=== PATIENT | female | born 1960 | race African-American/Black ===

== ENCOUNTER 2023-07-29 11:17 | Outpatient (AMB) | payer MEDICARE, MEDICAID, SELFPAY ==
--- NOTE | 2023-07-29 11:39 | A.OFFPC_ITS ---
Vital Signs 07/29/23 11:43 Height 5 ft 4 in Weight 176 lb BMI 30.2 BP 126/74 Blood Pressure Location Rt brachial Position Sitting Pulse 84 Pulse Source Pulse Oximeter Pulse Oximetry (%) 100 Oxygen Delivery Method Room Air Intake Visit Reasons: Est Care Intake Note: Pt is here today for New patient visit PE. Pt has [facility] at [facility]. Allergies atorvastatin [From Lipitor] Adverse Reaction (Verified 07/29/23 11:48) face swelling Medication List - Last Reconciled 07/29/23 by Serena Felder MD carvedilol 12.5 mg PO BID nifedipine ER mg PO BID spironolactone 100 mg PO DAILY Tobacco use date assessed: 07/29/23 Dental Screening Dental Screen Date: 07/29/23 Did you have a dental visit in the last 12 months?: No Did you have a dental problem in the last 6 months where you did not have access to dental care?: No Was dental information given to patient?: Patient declined HPI Est Care HPI Details Pt presents for [employer] visit. Patient moved from [place] 2 years ago to live with her [id number]. Past medical history includes hypertension, end- stage renal disease on dialysis for 17 years. Patient complains of worsening dyspnea on exertion for the last 2 years . She denies chest pain palpitations PND or orthopnea. Patient also complains of chronic bilateral knee pain and stiffness worse when walking but also at rest. [facility] Surgical History H/O: hysterectomy H/O thyroidectomy Family History Father No problems noted. Mother Hypertension Hx of CABG Brother No problems noted. Social History (Updated 07/29/23 @ 12:48 by Serena Felder MD) Household Members Other:: , moved [place] 2019, 7 adult children Housing: Apartment Patient Tobacco Use Status: Former Tobacco user (2 years ago) Tobacco use type: Cigarette e-Cigarette/Vaping Use: Never Used Current occupational status: disabled Cognitive needs: No Hearing needs: No Vision needs: Yes Questionnaire PHQ-9 Over the last 2 weeks, how often have you been bothered by any of the following problems? 1. Little interest or pleasure in doing things: not at all 2. Feeling down, depressed, or hopeless: not at all 3. Trouble falling or staying asleep, or sleeping too much: not at all 4. Feeling tired or having little energy: not at all 5. Poor appetite or overeating: not at all 6. Feeling bad about yourself - or that you are a failure or have let yourself or your family down: not at all 7. Trouble concentrating on things, such as reading the newspaper or watching television: not at all 8. Moving or speaking so slowly that other people could have noticed. Or the opposite - being so fidgety or restless that you have been moving around a lot more than usual: not at all 9. Thoughts that you would be better off or of hurting yourself in some way: not at all Total score: 0 Depression Screening Interpretation: Negative Depression Screening Done: Yes Source: Developed by Drs. Tayo Arcos, Allison Nichols, Robe Spicer and colleagues, with an educational amanda from [employer]. Thrive Questionnaire Date Thrive assessed: 07/29/23 I am a: Patient What is your living situation today?: I have a steady place to live Within the past 12 months, did the food you bought not last and you didn't have the money to get more?: Often true Within the past 12 months, did you worry whether your food would run out before you got money to buy more?: Never true Do you have trouble paying for medicines?: Yes Do you have trouble getting transportation to medical appointments?: No Do you have trouble paying your heating and electricity bill?: No Do you have trouble taking care of your child, family member or friend?: No Do you have trouble with day-to-day activities such as bathing, preparing meals, shopping, managing finances, etc.?: No Are you currently unemployed and looking for a job?: No Are you interested in more education?: Yes Please select the resources that you would like help with: Paying for medicine and Education Currently or been in a relationship where the following occur: no concerns reported THRIVE Score: 1 AUDIT C Alcohol Use Questionnaire (AUDIT-C) 1. How often do you have a drink containing alcohol?: Never 3. How often do you have six or more drinks on one occasion?: Never Total Score: 0 RICHARD-7 AMB Questionnaire RICHARD-7 Date RICHARD - 7 assessed: 07/29/23 Feeling nervous, anxious, or on edge: 0 = Not at all Not being able to stop or control worryin = Not at all Worrying too much about different things: 0 = Not at all Trouble relaxin = Not at all Being so restless that it is hard to sit still: 0 = Not at all Becoming easily annoyed or irritable: 0 = Not at all Feeling afraid as if something awful might happen: 0 = Not at all Total RICHARD-7 score (0-4 normal; 5-9 mild; 10-14 moderate; 15-21 severe): 0 Source: Developed by Drs. Tayo Arcos, Allison Nichols, Robe Spicer and colleagues, with an educational amanda from [employer]. Review of Systems Const All systems reviewed & are unremarkable except as noted in HPI and below Reports no additional complaints Eyes Reports no additional complaints ENT Reports no additional complaints Card Reports no additional complaints Resp Reports no additional complaints GI Reports no additional complaints Reports no additional complaints Physical exam (Primary Care) Vital Signs: Last Vital Signs Pulse 84 07/29/23 11:43 BP 126/74 07/29/23 11:43 Pulse Ox 100 07/29/23 11:43 Oxygen Delivery Method Room Air 07/29/23 11:43 BMI result Body Mass Index 30.2 Tobacco/Smoking Status: Tobacco use Status Tobacco use date assessed 07/29/23 07/29/23 11:40 Patient Tobacco Use Status Former Tobacco user (2 years 07/29/23 11:52 ago) Tobacco use type Cigarette 07/29/23 11:52 e-Cigarette/Vaping Use Never Used 07/29/23 11:52 PHQ-9: PHQ-9 Score PHQ-9: Total score 0 07/29/23 11:54 Depression Screening Interpretation: Negative Thrive Assessment: Date of Thrive Assessment Date Thrive assessed 07/29/23 07/29/23 11:54 Currently or been in a relationship where the following occur: no concerns reported Const General: no acute distress HENMT Head: Yes normal to inspection Mouth: Normal oral and palatal mucosa present Throat: Yes posterior oropharynx normal Neck Neck: Yes no lymphadenopathy and Yes supple Resp Effort & Inspection: normal respiratory effort Auscultation: clear to auscultation bilaterally Cardio Rhythm: regular rhythm Heart sounds: S1 normal heart sound present, S2 normal heart sound present and Murmur heart sound present systolic III/ GI Inspection: Yes normal to inspection Palpation (GI): Soft to palpation Percussion: Yes normal to percussion Auscultation: normal bowel sounds Extrem General: Yes no clubbing, cyanosis or edema Assessment and Plan Assessment & Plan (1) ESRD (end stage renal disease): Comment: X 17 YRS , Hx of uncontrolled HTN Code(s): N18.6 - End stage renal disease Plan: Follow-up with nephrology (2) MARTINEZ (dyspnea on exertion): Code(s): R06.09 - Other forms of dyspnea Plan: Check chest x-ray (3) HTN (hypertension): Code(s): I10 - Essential (primary) hypertension Plan: Controlled on current medications (4) Hoarseness: Comment: X 20 YRS Code(s): R49.0 - Dysphonia Plan: Will obtain medical records (5) Hx of mammogram: Comment: 2020 Code(s): Z92.89 - Personal history of other medical treatment Plan: Patient will schedule mammogram at [facility] (6) Ex-smoker: Comment: 1/2 PPD since 17 yo , quit 2021 Code(s): Z87.891 - Personal history of nicotine dependence (7) Heart murmur: Code(s): R01.1 - Cardiac murmur, unspecified Plan: Obtain echocardiogram (8) SVC syndrome: Code(s): I87.1 - Compression of vein (9) CAD (coronary artery disease): Comment: ? [place], ASA ? no statin Code(s): I25.10 - Atherosclerotic heart disease of [place] coronary artery without angina pectoris Plan: Obtain Medical records (10) H/O thyroidectomy: Code(s): E89.0 - Postprocedural hypothyroidism Plan: Check TSH Orders: Orders CA echo transthorac w con Today E89.0 - Postprocedural hypothyroidism, I10 - Essential (primary) hypertension, R01.1 - Cardiac murmur, unspecified, R06.09 - Other forms of dyspnea MM screening mammo BI Today E89.0 - Postprocedural hypothyroidism, Z12.31 - Encounter for screening mammogram for malignant neoplasm of breast Comprehensive [place]. Panel Fast Today I10 - Essential (primary) hypertension, N18.6 - End stage renal disease, R06.09 - Other forms of dyspnea, Z87.891 - Personal history of nicotine dependence XR chest 1V Today TSH reflex Free T4 Today E89.0 - Postprocedural hypothyroidism Complete Blood Count no Diff Today I10 - Essential (primary) hypertension, N18.6 - End stage renal disease, R06.09 - Other forms of dyspnea, Z87.891 - Personal history of nicotine dependence Lipid Panel Today I10 - Essential (primary) hypertension, N18.6 - End stage renal disease, R06.09 - Other forms of dyspnea, Z87.891 - Personal history of nicotine dependence XR knee standing BI Today Referrals Cologuard Test Z12.11 - Encounter for screening for malignant neoplasm of colon, Z12.12 - Encounter for screening for malignant neoplasm of rectum Coding Level of Care Code New Pt Level 4 (41766) Diagnoses ESRD (end stage renal disease) N18.6 MARTINEZ (dyspnea on exertion) R06.09 HTN (hypertension) I10 Hoarseness R49.0 Hx of mammogram Z92.89 Ex-smoker Z87.891 Heart murmur R01.1 SVC syndrome I87.1 CAD (coronary artery disease) I25.10 H/O thyroidectomy E89.0
[2023-07-29 11:43] VITALS: BP 126/74; PULSE 84; O2SAT 100; BMI 30.2
== END 2023-07-29 12:52 | disposition home or self-care (01) ==
LOC: HO.HMGC 11:17
PROVIDERS: Visit Provider Internal Medicine
DX: N18.6 End stage renal disease (principal); R06.09 Other forms of dyspnea; I12.0 Hypertensive chronic kidney disease with stage 5 chronic kidney disease or end stage renal disease; R49.0 Dysphonia; Z92.89 Personal history of other medical treatment; Z87.891 Personal history of nicotine dependence; R01.1 Cardiac murmur, unspecified; I87.1 Compression of vein; I25.10 Atherosclerotic heart disease of native coronary artery without angina pectoris; E89.0 Postprocedural hypothyroidism
CPT/HCPCS: 99204

== ENCOUNTER 2023-09-03 15:09 | Outpatient (AMB) | payer MEDICARE, MEDICAID, SELFPAY ==
--- NOTE | 2023-09-03 15:20 | MHC.OFFWIV ---
Intake Vital Signs 09/03/23 15:23 Height 5 ft 4 in BP 140/72 H Blood Pressure Location Lt brachial Position Sitting Pulse 76 Pulse Source Pulse Oximeter Temp 98.1 F Temp Source Oral Pulse Oximetry (%) 98 Oxygen Delivery Method Room Air Intake Visit Reasons: EP sore throat lost voice Intake Note: pt is here for c/o sore throat and loss of voice Patient Tobacco Use Status: Former Tobacco user (2 years ago) Allergies atorvastatin [From Lipitor] Adverse Reaction (Verified 09/03/23 15:24) face swelling Do you need a note to return to daycare/school/sports/work: No HPI HPI Comments History of Present Illness Details 63 y/o female patient who presents to walk in clinic with c/o wheezing, SOB, cough and sore throat for few days. Pt reports inability to fall asleep due to difficult with breathing. PFSH Surgical History H/O: hysterectomy H/O thyroidectomy Family History Father No problems noted. Mother Hypertension Hx of CABG Brother No problems noted. Social History (Updated 07/29/23 @ 12:48 by Serena Felder MD) Household Members Other:: , moved [place] 2019, 7 adult children Housing: Apartment Patient Tobacco Use Status: Former Tobacco user (2 years ago) Tobacco use type: Cigarette e-Cigarette/Vaping Use: Never Used Current occupational status: disabled Cognitive needs: No Hearing needs: No Vision needs: Yes Review of Systems Const All systems reviewed & are unremarkable except as noted in HPI and below Physical Exam Vital Signs: Last Vital Signs Temp 98.1 F 09/03/23 15:23 Pulse 76 09/03/23 15:23 BP 140/72 H 09/03/23 15:23 Pulse Ox 98 09/03/23 15:23 Oxygen Delivery Method Room Air 09/03/23 15:23 Const General: comfortable and no acute distress Orientation/consciousness: patient oriented x3 HEENT Head: Yes normocephalic Ears: external ears normal and TM's normal bilaterally General nose exam: Abnormal mucous membranes and turbinates present boggy and erythematous Face and sinus: Yes sinuses nontender Mouth: moist mucous membranes Throat: Yes posterior oropharynx normal Resp Effort & Inspection: normal respiratory effort, able to speak in complete sentences, audible wheezes and Actively coughing Auscultation: clear to auscultation bilaterally, no crackles, no rales, rhonchi throughout and wheezes scattered wheezes Cardio Rate: regular rate Rhythm: regular rhythm Neuro General: patient oriented x3, gait normal and moves all extremities Psych Speech and movement: Normal speech and movement present Office Procedures Nebulizer Treatment Nebulizer Treatment [id number] RX initial, or Nebulizer Subsequent Treatment Office Meds ipratropium 0.5 mg-albuterol 3 mg (2.5 mg base)/3 mL nebulization soln Performing Provider: Adamaris Pratt NP Performing Location: [facility] Administered by: Adamaris Pratt NP on 09/03/23 16:57 Dose Route Admin Location Dispensed Lot Number Expiration Date NDC Platen Builder Up 3 mL inhalation 3 mL M38 03/14/24 3951-3439-38 [facility] D[facility] Results AMB Rapid Strep AMB Rapid Strep Negative Last Edit by Don Munoz CMA on 09/03/23 16:05 Assessment & Plan Assessment & Plan (1) Wheezing on auscultation: Code(s): R06.2 - Wheezing Plan: - Rapid Strep Negative - Administered Neb Tx in Office. - Rest and hydrate well with warm fluids. Orders: Orders AMB Rapid Strep Screen Today Z13.9 - Encounter for screening, unspecified AMB Nebulizer Treatment Today R06.2 - Wheezing SARS-CoV2/FLU/RSV Today R06.2 - Wheezing Medications: New prednisone 50 mg PO DAILY 5 tabs 0RF 5 days R06.2 - Wheezing azithromycin 500 mg PO DAILY 3 tabs 0RF 3 days J06.9 - Acute upper respiratory infection, unspecified, R06.2 - Wheezing albuterol sulfate 90 mcg/actuation 2 puffs inhalation Q4-6H PRN 8.5 grams 0RF shortness of breath or wheezing R06.2 - Wheezing Coding Level of Care Code Est Pt Level 4 (81897) Diagnoses Wheezing on auscultation R06.2 CPT Codes Nebulizer Treatment - Nebulizer Treatment, initial or subsequent: [id number] RX initial, or Nebulizer Subsequent Treatment ([id number]) Time Spent (min) 20
[2023-09-03 15:23] VITALS: BP 140/72; PULSE 76; TEMP 36.7; O2SAT 98
== END 2023-09-03 16:35 | disposition home or self-care (01) ==
PROVIDERS: Visit Provider Nurse Practitioner Family
DX: R06.2 Wheezing (principal); J02.9 Acute pharyngitis, unspecified
CPT/HCPCS: 87880; 94640; 99214; J7620

== ENCOUNTER 2023-09-03 15:59 | Outpatient (REF) | payer MEDICARE, MEDICAID, SELFPAY ==
[2023-09-04 11:59] LABS: Influenza A PCR NEGATIVE (Negative); Influenza B PCR NEGATIVE (Negative); Resp Syncy Virus RNA Qual PCR NEGATIVE (Negative); SARS COV2 PCR INHOUSE NEGATIVE (Negative)
== END 2023-09-03 16:00 | disposition home or self-care (01) ==
LOC: HO.LAB 15:59
PROVIDERS: Visit Provider Nurse Practitioner Family
DX: R06.2 Wheezing (principal)
CPT/HCPCS: 0241U

== ENCOUNTER → 2023-09-30 09:11 | Outpatient (REF) | payer MEDICARE, MEDICAID, SELFPAY ==
--- NOTE | ~2023-09-30 | MM_ITS ---
EXAMINATION: MM SCREENING DIGITAL BREAST TOMOSYNTHESIS, BILATERAL CLINICAL INFORMATION: Screening. Asymptomatic. 63-year-old female, history of dialysis x17 years, chronic left arm swelling which has traveled into the breast, recent history of PEs at [facility] , with 3 months in rehabilitation although no records could be found relating to this. Patient states priors at [facility] , although no records could be found relating to this either, nor at any other local institution, despite exhaustive search. Per provider note, patient has only been in the area for approximately 2 years. Patient history is vague, and no priors could be obtained for comparison. COMPARISON: Mammography: No priors could be found. This will serve as the patient's new baseline. TECHNIQUE: Digital breast tomosynthesis is performed in both the craniocaudal and mediolateral oblique views along with computer-aided detection (CAD). Synthesized 2D images are generated from the tomosynthesis. Added right MLO view was submitted for motion. There is motion on the left MLO view due to patient's inherent inability to tolerate compression. FINDINGS: The breasts are heterogeneously dense, which may obscure small masses (ACR BI-RADS breast composition Category c). There is generalized trabecular thickening, skin thickening, and numerous dilated varicosities throughout the left breast. Extensive arterial calcification noted bilaterally. There are prominent lymph nodes in the left axilla, also likely related to edema. In the right breast, there are also extensive varicosities present, without associated skin thickening. There is mild prominence of the trabecular markings suggesting mild interstitial edema. No suspicious masses, suspicious calcifications, or areas of architectural distortion in either breast. MM/MM tomosynthesis screening BI IMPRESSION: 1. No mammographic evidence of malignancy in either breast. 2. Extensive bilateral left greater than right breast varicosities, generalized trabecular thickening left greater than right, and skin thickening most notable on the left, most likely related to long-standing dialysis and fluid overload of the left greater than right breasts. If there is any suspicion for inflammatory breast CA on the left, skin biopsy should be undertaken, although the findings are most supportive of left breast edema. 3. Extensive arterial calcifications in both breasts. ASSESSMENT: BI-RADS BI-RADS 2 - Benign Findings RECOMMENDATION: 1. Clinical management of the patient's left breast edema. If there is any suspicion of an inflammatory CA, skin punch biopsy should be undertaken. 2. Otherwise, routine annual screening mammography. This examination should not preclude the clinical evaluation of a suspicious palpable abnormality. This patient's information was entered into a reminder system with a target due date for their next mammogram.
== END ==
LOC: HO.CARD 09:11
PROVIDERS: PCP Internal Medicine; Visit Provider Internal Medicine
DX: Z12.31 Encounter for screening mammogram for malignant neoplasm of breast (principal)
CPT/HCPCS: 77063; 77067

== ENCOUNTER → 2023-09-30 12:00 | Outpatient (BNV) | payer MEDICARE, MEDICAID, SELFPAY | PROVIDERS: PCP Internal Medicine; Visit Provider Radiology Diagnostic Radiology | DX: Z12.31 Encounter for screening mammogram for malignant neoplasm of breast (principal) | CPT/HCPCS: 77063; 77067 ==

== ENCOUNTER 2024-01-20 09:42 | Outpatient (AMB) | payer MEDICARE, MEDICAID, SELFPAY ==
[2024-01-20 09:43] VITALS: BP 128/66; PULSE 82; O2SAT 98; BMI 30.9
--- NOTE | 2024-01-20 09:43 | A.OFFPC_ITS ---
Vital Signs 01/20/24 09:43 Height 5 ft 4 in Weight 180 lb BMI 30.9 BP 128/66 Blood Pressure Location Rt brachial Position Sitting Pulse 82 Pulse Source Pulse Oximeter Pulse Oximetry (%) 98 Oxygen Delivery Method Room Air Intake Visit Reasons: Gout Intake Note: Pt is here today for a sick visit. Pt c/o L foot swelling and pain. Allergies atorvastatin [From Lipitor] Adverse Reaction (Verified 01/20/24 09:49) face swelling Medication List - Last Reconciled 01/20/24 by Serena Felder MD albuterol sulfate 90 mcg/actuation 2 puffs inhalation Q4-6H PRN carvedilol 12.5 mg PO BID nifedipine ER mg PO BID spironolactone 100 mg PO DAILY spironolactone 100 mg PO DAILY Tobacco use date assessed: 01/20/24 Dental Screening Dental Screen Date: 01/20/24 Did you have a dental visit in the last 12 months?: No Did you have a dental problem in the last 6 months where you did not have access to dental care?: No Was dental information given to patient?: Patient declined HPI Gout HPI Details Patient presents for the follow-up of hospitalization at [facility] in September for acute respiratory failure, PE hemoptysis ICU stay and intubation, status post vocal cords stripping by ENT, intraperitoneal bleed while on heparin, hypertensive crisis. Patient has been slowly improving since the discharge. She lives independently. Patient noticed left lower extremity swelling worse at the end of the day in the last 2 weeks. She denies any trauma pain in cough erythema warmth or joint pain. She has been on dialysis for end-stage kidney disease 3 times a week. Hypertension has been running occasionally elevated but patient denies headache chest pain or shortness for breath. [facility] Surgical History H/O: hysterectomy H/O thyroidectomy Family History Father No problems noted. Mother Hypertension Hx of CABG Brother No problems noted. Social History Household Members Other:: , moved [place] 2020, 7 adult children Housing: Apartment Patient Tobacco Use Status: Former Tobacco user (2 years ago) Tobacco use type: Cigarette e-Cigarette/Vaping Use: Never Used service: No Current occupational status: disabled Cognitive needs: No Hearing needs: No Vision needs: Yes Questionnaire PHQ-9 Over the last 2 weeks, how often have you been bothered by any of the following problems? 1. Little interest or pleasure in doing things: not at all 2. Feeling down, depressed, or hopeless: not at all 3. Trouble falling or staying asleep, or sleeping too much: not at all 4. Feeling tired or having little energy: not at all 5. Poor appetite or overeating: not at all 6. Feeling bad about yourself - or that you are a failure or have let yourself or your family down: not at all 7. Trouble concentrating on things, such as reading the newspaper or watching television: not at all 8. Moving or speaking so slowly that other people could have noticed. Or the opposite - being so fidgety or restless that you have been moving around a lot more than usual: not at all 9. Thoughts that you would be better off or of hurting yourself in some way: not at all Total score: 0 Depression Screening Interpretation: Negative Depression Screening Done: Yes Source: Developed by Drs. Tayo Arcos, Allison Nichols, Robe Spicer and colleagues, with an educational amanda from [employer]. Thrive Questionnaire Date Thrive assessed: 01/20/24 I am a: Patient What is your living situation today?: I have a steady place to live Within the past 12 months, did the food you bought not last and you didn't have the money to get more?: Never true Within the past 12 months, did you worry whether your food would run out before you got money to buy more?: Never true Do you have trouble paying for medicines?: Yes Do you have trouble getting transportation to medical appointments?: No Do you have trouble paying your heating and electricity bill?: No Do you have trouble taking care of your child, family member or friend?: No Do you have trouble with day-to-day activities such as bathing, preparing meals, shopping, managing finances, etc.?: No Are you currently unemployed and looking for a job?: Yes Are you interested in more education?: No Please select the resources that you would like help with: Housing/Group Home THRIVE Score: 0 AUDIT C Alcohol Use Questionnaire (AUDIT-C) 1. How often do you have a drink containing alcohol?: Never 3. How often do you have six or more drinks on one occasion?: Never Total Score: 0 RICHARD-7 AMB Questionnaire RICHARD-7 Date RICHARD - 7 assessed: 07/29/23 Source: Developed by Drs. Tayo Arcos, Allison Nichols, Robe Spicer and colleagues, with an educational amanda from [employer]. Review of Systems Const All systems reviewed & are unremarkable except as noted in HPI and below Eyes Reports no additional complaints ENT Reports no additional complaints Card Reports no additional complaints Resp Reports no additional complaints GI Reports no additional complaints Reports no additional complaints Physical exam (Primary Care) Vital Signs: Last Vital Signs Pulse 82 01/20/24 09:43 BP 128/66 01/20/24 09:43 Pulse Ox 98 01/20/24 09:43 Oxygen Delivery Method Room Air 01/20/24 09:43 BMI result Body Mass Index 30.9 Tobacco/Smoking Status: Tobacco use Status Tobacco use date assessed 01/20/24 01/20/24 09:54 Patient Tobacco Use Status Former Tobacco user (2 years 01/20/24 09:43 ago) Tobacco use type Cigarette 01/20/24 09:43 e-Cigarette/Vaping Use Never Used 01/20/24 09:43 PHQ-9: PHQ-9 Score PHQ-9: Total score 0 01/20/24 09:54 Depression Screening Interpretation: Negative Thrive Assessment: Date of Thrive Assessment Date Thrive assessed 01/20/24 01/20/24 09:43 Const General: no acute distress HENMT Face and sinus: Yes normal facial exam Throat: Yes posterior oropharynx normal Resp Effort & Inspection: normal respiratory effort Auscultation: clear to auscultation bilaterally Cardio Rhythm: regular rhythm Heart sounds: S1 normal heart sound present, S2 normal heart sound present and Murmur heart sound present systolic III/ and at the left sternal border GI Inspection: Yes normal to inspection Palpation (GI): Soft to palpation Extrem Other: Trace pitting edema in the left lower extremity, left ankle with full range of motion no erythema or warmth Assessment and Plan Assessment & Plan (1) Left leg swelling: Code(s): M79.89 - Other specified soft tissue disorders Plan: Obtain left lower extremity Doppler to rule out DVT (2) Heart murmur: Code(s): R01.1 - Cardiac murmur, unspecified Plan: Obtain echo (3) HTN (hypertension): Code(s): I10 - Essential (primary) hypertension Plan: Increase carvedilol to 12.5 twice a day continue nifedipine and spironolactone follow-up in 1 month (4) ESRD (end stage renal disease): Comment: X 17 YRS , Hx of uncontrolled HTN Code(s): N18.6 - End stage renal disease Plan: Follow-up with nephrology (5) Pulmonary embolism: Comment: 09/2023 hospitalized at [facility], intraperitoneal bleed while on heparin. Anticoagulation was discontinued Code(s): I26.99 - Other pulmonary embolism without acute cor pulmonale Plan: Continue 81 mg of ASA Orders: Orders US venous duplex LE LT Today M79.89 - Other specified soft tissue disorders CA echo transthoracic complete Today R01.1 - Cardiac murmur, unspecified Referrals Cologuard Test Z12.11 - Encounter for screening for malignant neoplasm of colon, Z12.12 - Encounter for screening for malignant neoplasm of rectum Medications: New carvedilol must administer with a meal/food 12.5 mg PO BID 180 tabs 0RF Coding Level of Care Code Est Pt Level 4 (88403) Complex EM visit Add On G2211 Diagnoses Left leg swelling M79.89 Heart murmur R01.1 HTN (hypertension) I10 ESRD (end stage renal disease) N18.6 Pulmonary embolism I26.99
== END 2024-01-20 10:33 | disposition home or self-care (01) ==
PROVIDERS: PCP Internal Medicine; Visit Provider Internal Medicine
DX: I12.0 Hypertensive chronic kidney disease with stage 5 chronic kidney disease or end stage renal disease (principal); N18.6 End stage renal disease; I26.99 Other pulmonary embolism without acute cor pulmonale; M79.89 Other specified soft tissue disorders; R01.1 Cardiac murmur, unspecified
CPT/HCPCS: 99214; G2211

== ENCOUNTER 2024-01-20 10:51 | Outpatient (REF) | payer MEDICARE, MEDICAID, SELFPAY ==
--- NOTE | ~2024-01-20 | US_ITS ---
EXAMINATION: US VENOUS ULTRASOUND WITH DOPPLER LOWER EXTREMITY, LEFT CLINICAL INFORMATION: Left leg edema COMPARISON: None available. TECHNIQUE: Ultrasound of the deep veins is performed from the hip to the calf with compression sonography and color and pulse Doppler assessment. Spectral analysis with color-flow imaging is performed. FINDINGS: There is normal venous compression and respiratory variation and augmented flow. The visualized common femoral vein, superficial femoral vein, profunda femoral vein, popliteal vein, and the trifurcation region shows no evidence of deep venous thrombosis. There is no significant popliteal fossa cyst. If the patient's symptoms persist, followup ultrasound in 5 days 7 days might be of value to exclude proximal propagation from a non-visualized calf vein. US/US venous duplex LE LT IMPRESSION: No DVT demonstrated in the left lower extremity.
== END 2024-01-20 10:52 | disposition home or self-care (01) ==
LOC: HO.HMGCX 10:51
PROVIDERS: PCP Internal Medicine; Visit Provider Internal Medicine
DX: M79.604 Pain in right leg (principal); M79.89 Other specified soft tissue disorders
CPT/HCPCS: 93971

== ENCOUNTER 2024-11-13 14:25 | Outpatient (AMB) | payer MEDICARE, MEDICAID, SELFPAY ==
--- NOTE | 2024-11-13 14:46 | AM.OFFWIN_ITS ---
Intake Vital Signs 3 11/13/24 14:48 Height 5 ft 4 in Weight 181 lb BMI 31.1 BP 122/80 Blood Pressure Location Lt brachial Position Sitting Pulse 77 Pulse Source Pulse Oximeter Pulse Oximetry (%) 99 Oxygen Delivery Method Room Air Intake Visit Reasons: EP rash all over face Intake Note: Patient here for rash all over face that has been present for about 1 month. Pt denies any lotion, detergent, face wash, meds. Patient Tobacco Use Status: Former Tobacco user (2 years ago) Allergies atorvastatin [From Lipitor] Adverse Reaction (Verified 11/13/24 14:47) face swelling Do you need a note to return to daycare/school/sports/work: No HPI HPI Comments 2 History of Present Illness0 Details 64 y/o Female patient who presents to [facility] walk in clinic with c/o Rash all over face that has been present for about 1 month. Pt denies any changes to cosmetic, detergent, or Diet. She does receive Dialysis 3 times a week due to ESRD. She also does wear a Facial Mask everyday when outside - rash more concentrated around the mouth, cheeks and nose. Reports that the rash is very itchy, keeps her up at night. [facility] Medical History (Updated 11/13/24 @ 15:16 by Adamaris Pratt NP) Rash and nonspecific skin eruption Surgical History H/O: hysterectomy H/O thyroidectomy Family History Father No problems noted. Mother Hypertension Hx of CABG Brother No problems noted. Social History Household Members Other:: , moved [place] 2019, 7 adult children Housing: Apartment Patient Tobacco Use Status: Former Tobacco user (2 years ago) Tobacco use type: Cigarette e-Cigarette/Vaping Use: Never Used service: No Current occupational status: disabled Cognitive needs: No Hearing needs: No Vision needs: Yes Review of Systems Const All systems reviewed & are unremarkable except as noted in HPI and below Physical Exam Vital Signs: Last Vital Signs Pulse 77 11/13/24 14:48 BP 122/80 11/13/24 14:48 Pulse Ox 99 11/13/24 14:48 Oxygen Delivery Method Room Air 11/13/24 14:48 BMI result Body Mass Index 31.1 Const General: no acute distress Nutritional Appearance: obese Orientation/consciousness: patient oriented x3 Skin General skin exam: dry skin Rashes: rashes noted (Face, cheeks, mouth and nose bridge. ) Full body images: 2 1. Macular papular rash on face Neuro General: patient oriented x3, gait normal and moves all extremities Psych Speech and movement: Normal speech and movement present Assessment & Plan Assessment & Plan (1) Rash and nonspecific skin eruption: Code(s): R21 - Rash and other nonspecific skin eruption Plan: Ordered Steroid Cream BID Ordered Hydroxyzine. Medications: New 2 hydroxyzine HCl 25 mg PO TID PRN 30 tabs 0RF itching R21 - Rash and other nonspecific skin eruption triamcinolone acetonide 0.1% APPLY A THIN LAYER TO THE AFFECTED SKIN TWICE A DAY FOR 14 DAYS. 1 appl topical BID 2 weeks 30 grams 1RF R21 - Rash and other nonspecific skin eruption Coding Level of Care Code Est Pt Level 4 (27034) Diagnoses Rash and nonspecific skin eruption R21 Time Spent (min) 20
[2024-11-13 14:48] VITALS: BP 122/80; PULSE 77; O2SAT 99; BMI 31.1
--- OUTSIDE RECORDS SUMMARY | 2024-11-13 15:40 | XMS_ITS | Clinical Summary ---
Author Organization [facility] Address [address] [place] [address] Phone Care Team Providers Care Paginator Name Role Phone Moriah Goldman MD Primary Care Provider [phone] Allergies Active Allergy Reactions Criticality Noted Date Comments Dada Inhibitors Swelling High 01/03/2020 Swelling of tongue and lips Atorvastatin Swelling High 01/03/2020 Swelling of lips and tongue Nifedipine Other (see comments) 01/03/2020 Pt. Unsure of reaction Phenobarbital Other (see comments) 01/03/2020 Pt. Unsure of reaction Medications sevelamer carbonate (RENVELA) 800 MG tablet Take 1,600 mg by mouth in the morning and 1,600 mg at noon and 1,600 mg in the evening. Take with meals. Active loperamide (IMODIUM) 2 MG capsule TAKE 1 CAPSULE BY MOUTH EVERY 6 HOURS NEEDED FOR DIARRHEA 120 capsule 1 12/23/2020 Active aspirin (ST DEMOND) 81 MG EC tablet Take 81 mg by mouth 1 (one) time each day Active ergocalciferol 1.25 MG (27004 UT) capsule Take 50,000 Units by mouth 1 (one) time per week Active spironolactone (ALDACTONE) 100 MG tablet 12/16/2021 Active Acetaminophen (Tylenol) 325 MG capsule Take 325 mg by mouth 05/03/2018 Active NIFEdipine CC (ADALAT CC) 90 MG 24 hr tablet Take 1 tablet (90 mg total) by mouth in the morning and 1 tablet (90 mg total) in the evening. 60 tablet 01/07/2023 Active carvedilol (COREG) 12.5 MG tablet Take 1 tablet (12.5 mg total) by mouth in the morning and 1 tablet (12.5 mg total) in the evening. 180 tablet 08/31/2023 Active Melatonin 3 MG capsule Take by mouth Active Active Problems Problem Noted Date Diagnosed Date Lymphadenopathy 11/26/2022 Hypertension 11/26/2022 History of myocardial infarction 11/26/2022 End stage renal failure on dialysis 11/26/2022 Overview (11/26/2022): M-W-F 11-4PM [facility] Dependence on hemodialysis due to end stage catalino l disease 11/26/2022 H/O: breast problem 11/26/2022 Anemia in chronic kidney disease 01/03/2020 Blood coagulation disorder 01/03/2020 Cerebral infarction 01/03/2020 Gastro-esophageal reflux disease without esophag itis 01/03/2020 Hyperlipidemia 01/03/2020 Hyperparathyroidism due to renal insufficiency 0 01/03/2020 Hypoparathyroidism 01/03/2020 Pure hypercholesterolemia 01/03/2020 Stenosis of precerebral artery 01/03/2020 Urinary tract infectious disease 01/03/2020 History of cerebrovascular accident 12/19/2004 Encounters Date Type Department Care Team Description 11/08/2024 Orders Only [facility] [place] [facility] [address] [phone] Kam Ryder MD 11/01/2024 Orders Only [facility] [address] [phone] Kam Ryder MD 11/01/2024 Treatment [facility] [place] [facility] [address] [phone] Harrison Reece MD End stage renal disease; Dependence on renal dialysis 10/25/2024 Orders Only [facility] [place] [facility] [address] [phone] Kam Ryder MD 10/25/2024 Treatment [facility] [place] [facility] [address] [phone] Harrison Reece MD End stage renal disease; Dependence on renal dialysis 10/18/2024 Orders Only [facility] [address] [phone] Kam Ryder MD 10/18/2024 Treatment [facility] [address] [phone] Harrison Reece MD End stage renal disease; Dependence on renal dialysis 10/11/2024 Orders Only [facility] [address] [phone] Kam Ryder MD 10/10/2024 1:45 PM EDT Office Visit [facility] [address] [place] [address] Tayo Osei MD End stage renal disease (HCC) (Primary Dx) 10/09/2024 Treatment [facility] [address] [phone] Harrison Reece MD End stage renal disease; Dependence on renal dialysis 10/04/2024 Orders Only [facility] [address] [phone] Kam Ryder MD 10/04/2024 Treatment [facility] [address] [phone] Harrison Reece MD End stage renal disease; Dependence on renal dialysis 09/27/2024 Orders Only [facility] [address] [phone] Kam Ryder MD 09/27/2024 Treatment [facility] [address] [phone] Harrison Reece MD End stage renal disease; Dependence on renal dialysis 09/20/2024 Orders Only [facility] [address] [phone] Kam Ryder MD 09/18/2024 Treatment [facility] [address] [phone] Harrison Reece MD End stage renal disease; Dependence on renal dialysis 09/13/2024 Orders Only [facility] [address] [phone] Kam Ryder MD 09/11/2024 Orders Only [facility] [address] [phone] Harrison Reece MD 09/06/2024 Orders Only [facility] [address] [phone] Kam Ryder MD 09/04/2024 Treatment [facility] [address] [phone] Harrison Reece MD End stage renal disease; Dependence on renal dialysis 09/01/2024 Orders Only [facility] [address] [phone] Harrison Reece MD 08/30/2024 Orders Only [facility] [address] [phone] Kam Ryder MD 08/30/2024 Treatment [facility] [address] [phone] Harrison Reece MD End stage renal disease; Dependence on renal dialysis 08/25/2024 Treatment [facility] [address] [phone] Harrison Reece MD End stage renal disease; Dependence on renal dialysis 08/23/2024 Orders [facility] [address] [phone] Kam Ryder MD 08/23/2024 Treatment [facility] [address] [phone] Harrison Reece MD End stage renal disease; Dependence on renal dialysis 08/16/2024 Orders [facility] [address] [phone] Kam Ryder MD from Last 3 Months Family History Medical History Relation Comments Heart disease Mother Hypertension Mother Stroke Mother Relation Status Comments Father Unknown Mother Unknown Social History Tobacco Use Types Packs/Day Years Used Date Smoking Tobacco: Former Cigarettes Q uit: 12/15/2021 Tobacco Cessation:Counseling Given: Not Answered Alcohol Use Standard Drinks/Week Comments No 0 (1 standard drink = 0.6 oz pur e alcohol) Comments Unknown Sex and Gender Information Value Date Recorded Sex Assigned at Not on file Legal Sex Female 5:11 PM EST Gender Identity Not on file Sexual Orientation Not on file Last Filed Vital Signs Vital Sign Reading Time Taken Comments Blood Pressure 156/90 11/26/2022 12:27 PM EDT Pulse 84 11/26/2022 12:27 PM EDT Temperature 36.7 ??C (98.1 ??F) 11/26/2022 12:27 PM E DT Respiratory Rate 14 11/26/2022 12:27 PM EDT Oxygen Saturation 97% 11/26/2022 12:27 PM EDT Inhaled Oxygen Concentration - - Weight 77.1 kg (170 lb) 11/26/2022 12:27 PM EDT Height 157.5 cm (5' 2 ) 11/26/2022 12:27 PM EDT Body Mass Index 31.09 11/26/2022 12:27 PM EDT Plan of Treatment Health Maintenance Due Date Last Done Comments Breast Cancer Screening 1960 Colorectal Cancer Screening: Annual FOBT 2011 Colorectal Cancer Screening: Colonoscopy 2011 Colorectal Cancer Screening: Sigmoidoscopy 2011 Pneumococcal Vaccine: 50+ Ye ars (2 of 2 - PPSV23, PCV20, or PCV21) 11/06/2014 09/11/2014 Influenza Vaccine (Season Ended) 2025 03/16/20 14 Pneumococcal Vaccine: Peds ( 0 to 5 Years) and At-Risk Patients (6 to 49 Years) Discontinued 09/11/2014 Hepatitis B Vaccine Aged Out No longe r eligible based on patient's age to complete this topic Procedures Procedure Name Priority Date/Time Associated Diagnosis Comments HEMATOLOGY Routine 11/08/2024 IMMUNO CHEMISTRY Routine 11/01/2024 CHEMISTRY Routine 11/01/2024 HEMATOLOGY Routine 11/01/2024 CHEMISTRY Routine 11/01/2024 HEMATOLOGY Routine 10/25/2024 [facility] Routine 10/18/2024 HD KINETICS Routine 10/18/2024 POST CHEMISTRY Routine 10/18/2024 CHEMISTRY Routine 10/18/2024 HEMATOLOGY Routine 10/18/2024 HEMATOLOGY Routine 10/11/2024 HEMATOLOGY Routine 10/04/2024 CHEMISTRY Routine 09/27/2024 IMMUNO CHEMISTRY Routine 09/27/2024 CHEMISTRY Routine 09/27/2024 HEMATOLOGY Routine 09/27/2024 HEMATOLOGY Routine 09/20/2024 [facility] RES[facility] Routine 09/13/2024 HD KINETICS Routine 09/13/2024 POST CHEMISTRY Routine 09/13/2024 HEMATOLOGY Routine 09/13/2024 CHEMISTRY Routine 09/13/2024 CHEMISTRY Routine 09/11/2024 CHEMISTRY Routine 09/06/2024 HEMATOLOGY Routine 09/06/2024 CHEMISTRY Routine 09/01/2024 IMMUNO CHEMISTRY Routine 08/30/2024 CHEMISTRY Routine 08/30/2024 HEMATOLOGY Routine 08/30/2024 CHEMISTRY Routine 08/30/2024 HEMATOLOGY Routine 08/23/2024 [facility] Routine 08/16/2024 HD KINETICS Routine 08/16/2024 POST CHEMISTRY Routine 08/16/2024 CHEMISTRY Routine 08/16/2024 HEMATOLOGY Routine 08/16/2024 from Last 3 Months Results * (ABNORMAL) HEMATOLOGY (11/08/2024) Only the most recent of13 resultswithin the time period is included. Hemoglobin 10.4(L) 12.0 - 16.0 g/dL [facility] Hemoglobin x 3 31.2(L) 36.0 - 48.0 % [facility] 11/08/2024 11/09/2024 9:1 0 AM EDT Narrative [facility] - 11/09/2024 Unless otherwise specified, test(s) performed at: [facility], [address] [place] [id number] LIFE ENRICHMENT ASSISTANT: Ayden Patel M.D. For any questions, please call customer service at FREQUENCY:OTHER Resulting Agency Comment Specimen source: Blood Kam Ryder MD LAB BLOOD ORDERABLES Final Resu lt Performing Organization Address City/[facility]/ZIP Co de Phone Number [facility] See order comments or contact performing lab Unknown, [place] * IMMUNO CHEMISTRY (11/01/2024) Only the most recent of3 resultswithin the time period is included. [facility] Hep B Surface Ag Negative Negative [facility] 11/01/2024 11/02/2024 9:4 3 AM EDT Narrative Resulting Agency Comment Specimen source: Serum Kam Ryder MD LAB BLOOD ORDERABLES Final Resu Performing Organization Address [facility] Co de Phone Number [email or web address] See order comments or contact performing lab Unknown, [place] * (ABNORMAL) [facility] (11/01/2024) Only the most recent of12 resultswithin the time period is included. Ferritin 1,488(H) 10 - 291 ng/mL [facility] Creatinine 9.83(H) 0.60 - 1.30 mg/dL [facility] Sodium 138 136 - 145 mEq/L [facility] Potassium 4.3 3.5 - 5.1 mEq/L [facility] Bicarbonate (CO2) 22 22 - 29 mEq/L [facility] Calcium 8.4 8.4 - 10.2 mg/dL [facility] Corrected Calcium 8.2(L) 8.4 - 10.2 mg/dL [facility] Comment: Corrected Calcium is not equivalent to measured Ionized Calcium. Phosphorus 4.5 2.6 - 4.5 mg/dL [facility] Calcium Phosphorus Product 38 0 - 54 [facility] Calcium Phosporus Product, Cor 37 0 - 54 [facility] Alkaline Phosphatase 92 35 - 104 U/L [facility] ALT (SGPT) 6(L) 7 - 52 U/L [facility] Albumin 4.2 3.5 - 5.2 g/dL [facility] Iron 71 30 - 160 mcg/dL [facility] UIBC 175 155 - 355 mcg/dL [facility] TIBC 246 185 - 515 mcg/dL [facility] Iron Saturation (TSat) 29 20 - 55 % [facility] 11/01/2024 11/02/2024 9:4 3 AM EDT Narrative [facility] - 11/02/2024 Unless otherwise specified, test(s) performed at: [facility], [address] [place] [id number] LIFE ENRICHMENT ASSISTANT: Ayden Patel M.D. For any questions, please call customer service at FREQUENCY:MONTHLY Resulting Agency Comment Specimen source: Serum Kam Ryder MD LAB BLOOD ORDERABLES Edited Res ult - Final Performing Organization Address [facility] de Phone Number [employer] See order comments or contact performing lab Unknown, [place] * HD KINETICS (10/18/2024) Only the most recent of3 resultswithin the time period is included. % Urea Reduction 74 65 - 80 % [facility] 10/18/2024 10/19/2024 11: 30 AM EDT Narrative Resulting Agency Comment Specimen source: Plasma us Kam Ryder MD LAB BLOOD ORDERABLES Final Resu lt Performing Organization Address [facility] de Phone Number [employer] See order comments or contact performing lab Unknown, [place] * POST CHEMISTRY (10/18/2024) Only the most recent of3 resultswithin the time period is included. BUN Post Dialysis 7 6 - 19 mg/dL [facility] 10/18/2024 10/19/2024 11: 30 AM EDT Narrative [facility] - 10/20/2024 Unless otherwise specified, test(s) performed at: [facility], [address] [place] [address] LIFE ENRICHMENT ASSISTANT: Ayden Patel M.D. For any questions, please call customer service at FREQUENCY:OTHER Resulting Agency Comment Specimen source: Plasma us Kam Ryder MD LAB BLOOD ORDERABLES Final Resu lt [facility] See order comments or contact performing lab Unknown, [place] * [facility] Results (10/18/2024) Only the most recent of3 resultswithin the time period is included. eKt/V (Tattersall) 1.31 [facility] spKt/V (Daugirdas II) 1.54 [facility] spKt/V Gotch 1.58 [facility] eNPCR 0.53 [facility] WSTDKT/V 2.4 [facility] eKdrt/V 1.33 [facility] eKt/V Gotch 1.33 Knowledg e Center PCR 31.22 [facility] nPCR_HD 0.59 [facility] 10/18/2024 10/18/2024 us [facility] Ordering Provider LAB BLOOD ORDERABLES Final Result Performing Organization Address [facility]/ZIP Co de Phone Number [facility] Contact Performing lab [place] from Last 3 Months Insurance Medicare Medicaid [place] Medicare Medicaid [place] [address] [place] [id number] Medicare Medicaid [place] Care Teams Paginator Relationship Specialty Start Date End Date Moriah Goldman MD [address] [place] [id number] PCP - General 06/24/20
== END 2024-11-13 15:18 | disposition home or self-care (01) ==
PROVIDERS: PCP Internal Medicine; Visit Provider Nurse Practitioner Family
DX: R21 Rash and other nonspecific skin eruption (principal)

== ENCOUNTER → 2024-11-13 14:25 | Outpatient (BNVA) | payer MEDICARE, MEDICAID, SELFPAY | PROVIDERS: PCP Internal Medicine; Visit Provider Nurse Practitioner Family | DX: R21 Rash and other nonspecific skin eruption (principal) | CPT/HCPCS: 99212 ==